=== PATIENT | male | born 1965 | race Caucasian/White ===

== ENCOUNTER 2016-07-19 09:28 | Inpatient (IN) | payer SELFPAY ==
[~2016-07-19] VITALS: Ht 179.1 cm; Wt 97.5 kg
[2016-07-19] MEDS ORDERED: ALU/MAG/SIM 30 ML UDC PO PRN (12:55)
[2016-07-19] MEDS ORDERED: SALINE FLUSH 10 ML FLUSH PRN (12:55)
[2016-07-19] MEDS ORDERED: ACETAMINOPHEN 325 MG TAB PO PRN (12:55)
[2016-07-19] MEDS ORDERED: ONDANSETRON 4 MG VIAL IV PRN (12:55)
[2016-07-19] MEDS ORDERED: MAG HYDROX 30 ML UDC PO PRN (12:55)
[2016-07-19] MEDS ORDERED: Furosemide 40 MG/4 ML VIAL IV ONE (12:55)
[2016-07-19] MEDS: PANTOPRAZOLE 40 MG TAB PO SCH (13:41)
[2016-07-19 14:02] VITALS: BP_SYST 123; RESP 18; TEMP 98
[2016-07-19] MEDS ORDERED: Flu Vaccine Quadrivalent 60 MCG/0.5 ML IM.VACC ONE (14:05)
[2016-07-19 14:22] VITALS: Ht 179.1 cm; Wt 97.5 kg
[2016-07-19 16:37] VITALS: RESP 18
[2016-07-19 16:46] VITALS: BP_SYST 132; RESP 18; TEMP 97.7
[2016-07-19] MEDS: DUONEB INH SCH ×2 (19:20→22:48)
[2016-07-19 19:58] VITALS: BP_SYST 136; RESP 18; TEMP 98.5
[2016-07-19 19:59] VITALS: RESP 18
[2016-07-19] MEDS: SALINE FLUSH 10 ML FLUSH SCH (20:55)
[2016-07-19] MEDS: NEB-BROVANA 15 MCG/2 ML INH SCH (22:48)
[2016-07-19 23:06] VITALS: BP_SYST 151; RESP 18; TEMP 97.5
[2016-07-20 03:45] VITALS: BP_SYST 106; RESP 20; TEMP 98.5
[2016-07-20] MEDS ORDERED: SODIUM CHLORIDE 0.9% FLUSH BAG 500 ML IV SCH (06:00)
[2016-07-20] MEDS: PANTOPRAZOLE 40 MG TAB PO SCH (06:49)
[2016-07-20] MEDS ORDERED: OPTIRAY 350 100 ML VIAL HMH IV ONE (07:00)
[2016-07-20] MEDS: NEB-BROVANA 15 MCG/2 ML INH SCH (07:28)
[2016-07-20] MEDS: DUONEB INH SCH (07:28)
[2016-07-20 07:47] VITALS: BP_SYST 133; RESP 18; TEMP 97.6
[2016-07-20] MEDS: SALINE FLUSH 10 ML FLUSH SCH (08:06)
[2016-07-20 10:49] VITALS: BP_SYST 147; RESP 18; TEMP 98.6
[2016-07-20] MEDS ORDERED: Carvedilol 3.125 MG TAB PO SCH (10:50)
[2016-07-20] MEDS ORDERED: Furosemide 20 MG TAB PO SCH (10:50)
[2016-07-20] MEDS ORDERED: DUONEB INH PRN (12:15)
[2016-07-20 12:58] VITALS: BP_SYST 147; RESP 18; TEMP 98.6
== END 2016-07-20 14:02 | disposition home or self-care (01) | DRG 189 ==
LOC: ENRESERVDT → ENRESERVTM → ER 09:28 → EMR 13:14 → ENPENDDIS 13:14 → 4THW 13:39
PROVIDERS: ADMIT Internal Medicine; ATTEND Internal Medicine
CPT/HCPCS: 71010; 71260; 93005; 94640; 94799; 99223; 99232